=== PATIENT | female | born 1990 | race Hispanic/Latino ===

== ENCOUNTER 2024-08-07 08:03 | Emergency (ER) | payer MEDICAID, SELFPAY ==
[2024-08-07] MEDS ORDERED: Sodium Chloride 0.9% 1,000 ML ONE ×2 (08:36→10:02)
[2024-08-07] MEDS ORDERED: Ondansetron PF 4 MG/2 ML Vial ONE (08:36)
[2024-08-07] MEDS ORDERED: Ketorolac Tromethamine 30 MG (1 mL) VIAL ONE (08:36)
[2024-08-07] MEDS ORDERED: Acetaminophen 500 MG TAB ONE (08:36)
[2024-08-07] MEDS ORDERED: Iopamidol 370 76% 100 ML VIAL ONE (09:00)
[2024-08-07 09:01] LABS: ALT (SGPT) 87 U/L (8-55); AST (SGOT) 81 U/L (5-34); Albumin 3.1 g/dL (3.5-5.0); Alkaline Phosphatase 142 U/L (40-110); Anion Gap 16 mmol/L (10-20); BUN (Urea Nitrogen) 5 mg/dL (7.0-18.7); Bilirubin, Total 0.8 mg/dL (0.2-1.2); Calc. Creatinine Clearance 0 mL/min (70-130); Calcium 8.5 mg/dL (7.8-10.44); Carbon Dioxide 18 mmol/L (22-29); Chloride 104 mmol/L (98-107); Estimated GFR 93; Globulin 3.9 g/dL (2.4-3.5); Glucose 148 mg/dL (70-105); Lipase 10 U/L (8-78); Potassium 2.9 mmol/L (3.5-5.1); Sodium 135 mmol/L (136-145)
[2024-08-07 09:07] LABS: Hematocrit 35.1 % (36.0-47.0); Hemoglobin 11.3 g/dL (12.0-16.0); Mean Corpuscular HGB CONC 31.9 g/dL (32.0-36.0); Mean Corpuscular Hemoglobin 25.7 pg (27.0-31.0); Mean Corpuscular Volume 82.5 fl (78.0-98.0); Mean Platelet Volume 7.2 fL (7.4-10.4); Platelet Count 386 10x3/uL (130-400); Red Blood Cell (RBC) Count 4.25 mill/uL (4.20-5.40)
[2024-08-07 09:08] LABS: Band 27 % (5-11); Lymphocytes 7 % (21-51); MDiff Complete? YES; Manual Diff?? YES; Monocytes 3 % (0-10); Neutrophil 63 % (42-75)
[2024-08-07 09:09] LABS: Anisocytosis SLIGHT = 6-15 cells (100X) (0-5/hpf); Platelet Adequacy Comment Appears Adequate
[2024-08-07 09:10] LABS: BHCG - Serum Negative (NEGATIVE); Pregs Control Background? CLEAR/WHITE (CLR/WHITE); Pregs Control Bar Appear? YES (CONTROL BAR)
[2024-08-07 09:40] LABS: Bilirubin Negative (Negative); Blood, Urine Large (Negative); Clarity Slightly Cloudy (Clear); Glucose, Urine (Dipstick) Negative (Negative); Ketone, Urine Negative (Negative); Leukocyte Small (Negative); Nitrite Negative (Negative); Protein, Urine (Dipstick) 30 mg/dL (Neg-Trace); Urobilinogen 0.2 mg/dL (Less than 2)
[2024-08-07 09:47] LABS: CAUTI Indications for Culture Pelvic or flank pain
[2024-08-07 09:48] LABS: Bacteria/HPF 3+ HPF (None Seen)
[2024-08-07 09:49] LABS: Urine Culture Reflex No No
[2024-08-07] MEDS ORDERED: Sodium Chloride 0.9% 100 ML ONE (10:36)
[2024-08-07] MEDS ORDERED: Piperacillin/Tazobactam 4.5 GM VIAL ONE (10:36)
[2024-08-07] MEDS ORDERED: Norepinephrine 4 MG/4 ML VIAL ONE ×3 (10:54→11:09)
== END 2024-08-07 11:53 | disposition short-term general hospital (02) ==
LOC: MADERS 08:03
DX: A41.9 Sepsis, unspecified organism (principal); N10 Acute pyelonephritis; J11.1 Influenza due to unidentified influenza virus with other respiratory manifestations
CPT/HCPCS: 71045; 71260; 74177; 80053; 81001; 83605; 83690; 84703; 85025; 87040; 87077; 87086; 87149; 87186; 87400; 87426; 96361; 96365; 96375; J1885; J2405; J2543; J7030; Q9967